=== PATIENT | male | born 1975 | race Caucasian/White ===

== ENCOUNTER 2016-10-25 16:35 | Emergency (ER) | payer OTHER ==
[~2016-10-25] VITALS: Ht 180.3 cm; Wt 75.0 kg
[~2016-10-25 16:35] MED LIST: HYDR-3498 PO; HYDR-3504 PO; HYDR-762 PO; ONDA4TAB14 PO; OXYC-209 PO; OXYC-284 PO; PERM120L5 TP; VIGA RIGHT EYE
[2016-10-25 16:43] VITALS: Ht 180.3 cm; Wt 75.0 kg
[2016-10-25] MEDS ORDERED: HYDROmorphONE 1 MG/ML SYG IM STA (17:52)
[2016-10-25] MEDS ORDERED: PROMETHAZINE 25 MG TAB PO ONE (18:00)
[2016-10-25 18:22] LABS: ADD SCAN DIFF NO
[2016-10-25 18:26] LABS: BASOPHILS % 0.4 % (0.0-2.0); EOSINOPHILS # 0.3 10^3/ul (0.0-0.5); EOSINOPHILS % 3.7 % (0.0-7.0); HEMATOCRIT 37.5 % (42.0-52.0); LYMPHOCYTES # 2.7 10^3/ul (0.8-2.9); LYMPHOCYTES % 38.6 % (15.0-51.0); MEAN CORPUSCULAR HEMOGLOBIN 28.9 pg (29.0-33.0); MEAN CORPUSCULAR VOLUME 90.4 fl (82.0-101.0); MEAN PLATELET VOLUME 9.6 fl (7.4-10.4); MONOCYTE # 0.5 10^3/ul (0.3-0.9); MONOCYTES % 7.3 % (0.0-11.0); NEUTROPHIL # 3.5 10^3/ul (1.6-7.5); NEUTROPHILS % 49.9 % (39.0-77.0); PLATELET COUNT 317 10^3/UL (140-415); RED BLOOD COUNT 4.15 10^6/ul (4.70-6.10); RED CELL DISTRIBUTION WIDTH 13.4 % (11.5-14.5); WHITE BLOOD COUNT 7.1 10^3/ul (4.8-10.8)
[2016-10-25 18:41] LABS: ALBUMIN 4.4 g/dl (3.3-4.9); POTASSIUM 3.5 mmol/L (3.5-5.1)
[2016-10-25 18:44] LABS: ALBUMIN/GLOBULIN RATIO 1.46; BILIRUBIN,INDIRECT 0.2 mg/dl (0-1.1); BILIRUBIN,TOTAL 0.2 mg/dl (0.2-1.3); CALCIUM 9.2 mg/dl (8.4-10.2); TOTAL PROTEIN 7.4 g/dl (6.1-8.1)
--- NOTE | 2016-10-25 18:59 | RADRPT ---
PROCEDURE: Scrotal ultrasound CLINICAL INDICATION: Bilateral testicular pain. TECHNIQUE: A scrotal ultrasound was performed utilizing contreras scale and Doppler imaging. COMPARISON: None. FINDINGS: The right testicle measures 3.6 x 2.3 x 2.7 cm. There is normal size and echogenicity and morphology of the right testicle with normal blood flow. The right epididymis measures 1.0 x 0.8 cm. Normal va scular flow is seen within the right epididymis. The left testicle measures 3.4 x 2.3 x 2.2 cm. There is normal size and echogenicity and morphology of the left testicle with normal blood flow. The left epididymis measures 0.9 x 0.5 cm. Normal vascu lar flow is seen within the left epididymis. There are small right and moderate left hydroceles. A left sided varicocele is also noted. IMPRESSION: 1. No evidence of testicular torsion or epididymo-orchitis. 2. Small right and moderate left hydroceles. 3. Left-sided varicocele. RPTAT: HTAR .Pan Chow MD, Date Time Electronically viewed and signed by .Pan Chow MD, on 10/25/2016 18:59 .R/
[2016-10-25 19:13] LABS: ADD UMIC YES; URINE BILIRUBIN (Dip) 1+ (NEGATIVE); URINE BLOOD (Dip) 2+ (NEGATIVE); URINE COLOR LT. YELLOW (YELLOW); URINE GLUCOSE (Dip) NEGATIVE (NEGATIVE); URINE KETONES (Dip) NEGATIVE (NEGATIVE); URINE LEUKOCYTE ESTERASE (Dip) NEGATIVE (NEGATIVE); URINE NITRITE (Dip) NEGATIVE (NEGATIVE); URINE TOTAL PROTEIN (Dip) NEGATIVE (NEGATIVE); URINE UROBILINOGEN (Dip) 0.2 E.U./dL (0.1-1.0)
--- NOTE | 2016-10-25 19:17 | ERD ---
ER Documentation Chief Complaint Date/Time DATE: 10/25/16 TIME: 19:15 Chief Complaint PAIN IN TESTICLES SINCE YESTERDAY HPI Patient is a 41-year-old male who is legally blind who presents to the ED with multiple complaints. Patient presents to the ED with bilateral testicular pain , abdominal pain, dysuria. He states that he developed the testicular pain "after he had sex and did not ejaculate." He states the abdominal pain is throughout his entire abdomen. He states that he had a bowel movement today. Denies constipation. Denies vomiting or diarrhea. Denies back pain. Denies chest pain, cough, shortness of breath or difficulty breathing. Denies headache or dizziness, neck pain or stiffness. Denies leg pain or swelling. Denies recent travel or recent surgeries. He also complains of a rash on his head and back. States that it is itchy. Denies recent travel. Denies using any other medicine. ROS All systems reviewed and are negative except as per history of present illness. Medications Home Meds Active Scripts Permethrin* (Elimite*) 5% Cr, 1 APPLIC TOP ONCE for 7 Days, TUB Prov:CRIS JAMIL PA-C 10/25/16 Ondansetron (Ondansetron Odt) 4 Mg Tab.rapdis, 4 MG PO Q8 Y for NAUSEA AND/OR VOMITING, #30 TAB Prov:BERRY SHELDON NP 04/11/16 Oxycodone HCl/Acetaminophen (Percocet 10-325 mg Tablet) 1 Each Tablet, 1 EACH PO Q6, #10 TAB Prov:BERRY SHELDON NP 04/11/16 Oxycodone HCl/Acetaminophen (Percocet 10-325 mg Tablet) 1 Each Tablet, 1 EACH PO TID, #14 TAB Prov:SHELIA PATRICIA MD 03/11/16 Oxycodone Hcl-Acetaminophen* (Percocet*) 10-325 Mg Tablet, 1 TAB PO Q4H Y for sev, #3 TAB Prov:BERRY SHELDON NP 11/18/15 Hydrocodone Bit-Acetaminophen* ([place]*) 5-325 Mg Tab, 1 TAB PO Q6 Y for PAIN, # 7 TAB Prov:TJ FERNANDEZ 09/25/15 Moxifloxacin Hcl* (Vigamox*) 0.5% - 3 Ml Opht, 1 DROP RIGHT EYE TID for 7 Days, EA Prov:TJ FERNANDEZ 09/25/15 Permethrin (Permethrin) 118 Ml Liquid, 118 ML TP BID for 7 Days, EA Prov:LETTY PIZANO. 08/10/15 Hydrocodone Bit-Acetaminophen* ([place]*) 10-325 Mg Tablet, 1 TAB PO Q6 Y for PAIN , #20 TAB Prov:LETTY PIZANO. 08/10/15 Reported Medications Hydrocodone Bit-Acetaminophen (Hydrocodone-APAP) 10-325MG Tablet, 1 TAB PO Q4 Y for PAIN, #20 08/10/15 Allergies Allergies: Coded Allergies: ketorolac tromethamine (Verified Allergy, Intermediate, hives, 02/23/15) prochlorperazine maleate (Verified Allergy, Intermediate, hives, 02/23/15) morphine (Verified Allergy, Unknown, 03/19/14) PMhx/Soc History of Surgery: Yes (B Corneal Surg) Anesthesia Reaction: No Hx Neurological Disorder: Yes (Migraine HAs,Chronic Pains) Hx Respiratory Disorders: No Hx Cardiac Disorders: No Hx Psychiatric Problems: No Hx Miscellaneous Medical Probl: Yes (B Conjunctivitis,Fall,Legally Blind, glaucoma, back pain.) Hx Alcohol Use: No Hx Substance Use: No Hx Tobacco Use: Yes (10 sticks/day) Smoking Status: Current every day smoker FmHx Family History: No coronary disease, No diabetes, No other Physical Exam Vitals Vital Signs Date Time Temp Pulse Resp B/P Pulse Ox O2 Delivery O2 Flow Rate FiO2 10/25/16 20:10 98.2 78 20 143/76 97 Room Air 10/25/16 16:43 98.2 94 20 155/80 97 Physical Exam GENERAL: Well-developed, well-nourished male. Appears in no acute distress. HEAD: Normocephalic, atraumatic. LUNG: Clear to auscultation bilaterally. No rhonchi, wheezing, rales or coarse breath sounds. HEART: Regular rate and rhythm. No murmurs, rubs or gallops. ABDOMEN: No scars, ecchymosis or rashes noted. Soft, and nondistended. Positive bowel sounds in all four quadrants. No rebound tenderness, no guarding. (-) McBurneys point tenderness. No CVA tenderness. Tender with no focal tenderness. : Bilaterally descended testicles. No redness or swelling. No rashes. BACK: No midline tenderness. Extremities: Equal pulses bilaterally. No peripheral clubbing, cyanosis or edema. No unilateral leg swelling. NEUROLOGIC: Alert and oriented. Moving all four extremities. 5/5 strength in all extremities. Normal speech. Steady gait. SKIN: Normal color. Warm and dry. Erythematous lesions on neck and back, not excoriated. No drainage or signs of infection.. Capillary refill < 2 seconds Result Diagram: 10/25/16 1800 10/25/16 1800 Results 24 hrs Laboratory Tests Test 10/25/16 18:00 10/25/16 18:30 White Blood Count 7.110^3/ul Red Blood Count 4.1510^6/ul Hemoglobin 12.0g/dl Hematocrit 37.5% Mean Corpuscular Volume 90.4fl Mean Corpuscular Hemoglobin 28.9pg Mean Corpuscular Hemoglobin Concent 32.0g/dl Red Cell Distribution Width 13.4% Platelet Count 49899^3/UL Mean Platelet Volume 9.6fl Neutrophils % 49.9% Lymphocytes % 38.6% Monocytes % 7.3% Eosinophils % 3.7% Basophils % 0.4% Nucleated Red Blood Cells % 0.0/100WBC Neutrophils # 3.510^3/ul Lymphocytes # 2.710^3/ul Monocytes # 0.510^3/ul Eosinophils # 0.310^3/ul Basophils # 0.010^3/ul Nucleated Red Blood Cells # 0.010^3/ul Sodium Level 143mmol/L Potassium Level 3.5mmol/L Chloride Level 104mmol/L Carbon Dioxide Level 24mmol/L Anion Gap 19 Blood Urea Nitrogen 15mg/dl Creatinine 1.00mg/dl Glucose Level 98mg/dl Calcium Level 9.2mg/dl Total Bilirubin 0.2mg/dl Direct Bilirubin 0.00mg/dl Indirect Bilirubin 0.2mg/dl Aspartate Amino Transf (AST/SGOT) 20IU/L Alanine Aminotransferase (ALT/SGPT) 20IU/L Alkaline Phosphatase 88IU/L Total Protein 7.4g/dl Albumin 4.4g/dl Globulin 3.00g/dl Albumin/Globulin Ratio 1.46 Lipase 64U/L Urine Color LT. YELLOW Urine Clarity CLEAR Urine pH 6.0 Urine Specific [place] 1.025 Urine Ketones NEGATIVE Urine Nitrite NEGATIVE Urine Bilirubin 1+ Urine Ictotest NEGATIVE Urine Urobilinogen 0.2 E.U./dL Urine Leukocyte Esterase NEGATIVE Urine Microscopic RBC 5-10/HPF Urine Microscopic WBC 5-10/HPF Urine Epithelial Cells FEW Urine Bacteria FEW Urine Hemoglobin 2+ Urine Glucose NEGATIVE% Urine Total Protein NEGATIVE Current Medications Medications (Trade) Dose Ordered Sig/Cheko Route PRN Reason Start Time Stop Time Status Last Admin Dose Admin Promethazine HCl (Phenergan) 25 mg ONCE ONCE PO 10/25/16 18:00 10/25/16 18:01 DC 10/25/16 18:30 Hydromorphone HCl (Dilaudid) 1 mg ONCE STAT IM 10/25/16 17:52 10/25/16 17:56 DC 10/25/16 18:20 Procedures/MDM ER COURSE: I kept the patient and/or family informed of laboratory and diagnostic imaging results throughout the emergency room course. EKG, MONITORS, & DIAGNOSTIC IMAGING: [place] [id number] Radiology Main Line: [phone] DIAGNOSTIC IMAGING REPORT Patient: MARKY BAILON : 1975 Age: 41 Sex: M MR #: [id number] DOS: 10/25/16 1752 Ordering MD: CRIS JAMIL PA-C Location: [facility] Room/Bed: PROCEDURE: Scrotal ultrasound CLINICAL INDICATION: Bilateral testicular pain. TECHNIQUE: A scrotal ultrasound was performed utilizing contreras scale and Doppler imaging. COMPARISON: None. FINDINGS: The right testicle measures 3.6 x 2.3 x 2.7 cm. There is normal size and echogenicity and morphology of the right testicle with normal blood flow. The right epididymis measures 1.0 x 0.8 cm. Normal vascular flow is seen within the right epididymis. The left testicle measures 3.4 x 2.3 x 2.2 cm. There is normal size and echogenicity and morphology of the left testicle with normal blood flow. The left epididymis measures 0.9 x 0.5 cm. Normal vascular flow is seen within the left epididymis. There are small right and moderate left hydroceles. A left sided varicocele is also noted. IMPRESSION: 1. No evidence of testicular torsion or epididymo-orchitis. 2. Small right and moderate left hydroceles. 3. Left-sided varicocele. RPTAT: HTAR .Pan Chow MD, Date Time Electronically viewed and signed by .Pan Chow MD, on 10/25/2016 18:59 .R/ CC: CRIS JAMIL PA-C [place] [id number] Radiology Main Line: [phone] DIAGNOSTIC IMAGING REPORT Patient: MARKY BAILON : 1975 Age: 41 Sex: M MR #: [id number] DOS: 10/25/16 1742 Ordering MD: CRIS JAMIL PA-C Location: [facility] Room/Bed: PROCEDURE: CT abdomen and pelvis without contrast. CLINICAL INDICATION: Abdominal pain. TECHNIQUE: CT scan of the abdomen and pelvis without contrast was performed on a multi-slice CT scanner . Sagittal and coronal reformatted images were obtained from the axial source images. DLP 407.3 mGycm. CTDIvol 7.2 mGy COMPARISON: None FINDINGS: The lung bases are clear. There is limited evaluation of the solid viscera from the lack of IV contrast. The kidneys are symmetric bilaterally with no evidence of renal or ureteral calculi. There is a fluid density rounded cyst at the upper pole left kidney. There is no hydronephrosis or perinephric stranding. There is normal density of the liver with no gross focal lesion or biliary ductal dilatation. The gallbladder is unremarkable without inflammation. The spleen is unremarkable without mass. The adrenal glands are within normal limits without mass. The pancreas is unremarkable without focal lesion or surrounding inflammatory changes. There is no bowel obstruction or focal bowel inflammation. The appendix is unremarkable. There is a moderately fecal filled colon. There is no free air or free fluid. There are no enlarged lymph nodes. There is aortic atherosclerosis without aneurysmal dilatation. There is no acute osseous abnormality. The prostate is grossly unremarkable. IMPRESSION: No evidence of renal or ureteral calculi or hydronephrosis. No evidence of bowel obstruction or inflammation. There is a fecal filled colon. Atherosclerotic disease is present. RPTAT: AA .Chano Chopra MD, Date Time Electronically viewed and signed by .Chano Chopra MD, MD on 10/25/2016 19:18 .J/ CC: CRIS JAMIL PA-C MEDICATIONS: 1 Dilaudid, Phenergan p.o. Tolerated well and stated improvement in symptoms. No adverse reaction. LAB INTERPRETATION: CBC showed no evidence of systemic infection or severe anemia. CMP showed no evidence of electrolyte abnormalities, severe acidosis, alkalosis, renal failure , or liver disease. Lipase showed no evidence of acute pancreatitis. UA showed no evidence of leukocytes, nitrites or hematuria. MEDICAL DECISION MAKING: This is a 41-year-old male who presents with multiple complaints. Vital signs were reviewed. Patient is afebrile. Patient is not hypoxic. Patient is not toxic or ill-appearing. I consulted with Dr. Romero regarding this patient. Ultrasound and CAT scan is read by radiologist is unremarkable. I did explain to patient all the laboratory studies and imaging studies. Patient also has abdominal pain of unknown etiology. Patient also has a rash of unknown etiology , likely bug bite. I will be treating prophylactically with permethrin outpatient only. Patient was requesting more pain medication however I did explain to patient that after the 1 dose of Dilaudid no more narcotic pain medications will be given to patient. I do feel that patient has drug-seeking behavior as he has been to [facility] multiple times. Patient refused any other medication and stated that he would take his OxyContin that he has at home for his pain. Patient also had multiple questions throughout the visit. All questions were answered. Low suspicion for pyelonephritis, UTI, nephrolithiasis, appendicitis, testicular torsion, incarcerated or strangulated hernia. Low suspicion for ACS, AAA, perforated ulcer, bowel obstruction, cholecystitis, choledocholithiasis, cholangitis, pancreatitis, hepatic abscess, appendicitis, diverticulitis, gastroenteritis, hepatitis, peptic ulcer disease, HELLP syndrome. Low suspicion for necrotizing fasciitis, SJS, toxic epidermal necrolysis, Kawasaki, erythema multiforme, gangrene, scarlet fever, meningococcemia, sepsis, anaphylaxis, sepsis, deep space infection, or foreign body. DISCHARGE: At this time, patient is stable for discharge and outpatient management with no new complaints during the ER course. Patient was sent home with permethrin for itching and prophylactic treatment of pediculosis.. Patient will be discharged home with instructions to recheck for new or worsening symptoms such as fever, nausea, weakness, LOC and to follow up with primary care in the next 1-2 days. Patient was advised to return to the ER for any new or worsening symptoms. Plan was discussed and patient and/or family understands and agrees. Home instructions were given. Departure Diagnosis: Primary Impression: Abdominal pain Abdominal location: unspecified location Qualified Code: R10.9 - Abdominal pain, unspecified location Additional Impressions: Rash Drug-seeking behavior Condition: Stable CRIS JAMIL PA-C Oct 25, 2016 19:17 CRIS JAMIL PA-C Oct 25, 2016 19:17
--- NOTE | 2016-10-25 19:19 | RADRPT ---
PROCEDURE: CT abdomen and pelvis without contrast. CLINICAL INDICATION: Abdominal pain. TECHNIQUE: CT scan of the abdomen and pelvis without contrast was performed on a multi-slice CT [facility] . Sagittal and coronal reformatted images were obtained from the axial source images. DLP 407.3 mGycm. CTDIvol 7.2 mGy COMPARISON: None FINDINGS: The lung bases are clear. There is limited evaluation of the solid viscera from the lack of IV con trast. The kidneys are symmetric bilaterally with no evidence of renal or ureteral calculi. There is a flui d density rounded cyst at the upper pole left kidney. There is no hydronephrosis or perinephric stra nding. There is normal density of the liver with no gross focal lesion or biliary ductal dilatation. The gallbladder is unremarkable without inflammation. The spleen is unremarkable without mass. The adrenal glands are within normal limits without mass. The pancreas is unremarkable without focal lesion or surrounding inflammatory changes. There is no bowel obstruction or focal bowel inflammation. The appendix is unremarkable. There is a moderately fecal filled colon. There is no free air or free fluid. There are no enlarged lymph nod es. There is aortic atherosclerosis without aneurysmal dilatation. There is no acute osseous abnormal ity. The prostate is grossly unremarkable. IMPRESSION: No evidence of renal or ureteral calculi or hydronephrosis. No evidence of bowel obstruction or inflammation. There is a fecal filled colon. Atherosclerotic disease is present. RPTAT: AA .Chano Chopra MD, MD Date Time Electronically viewed and signed by .Chano Chopra MD, MD on 10/25/2016 19:18 .Jaret/
[2016-10-25] MEDS ORDERED: ELIM TOP (19:24)
[2016-10-25 19:27] LABS: BACTERIA,URINE FEW
[2016-10-25 20:10] VITALS: BP 143/76; PULSE 78; RESP 20; TEMP 98.2
[2016-10-25 23:01] LABS: ICTOTEST NEGATIVE (NEGATIVE)
== END 2016-10-25 20:10 | disposition home or self-care (01) ==
LOC: FTE 16:35
DX: R10.9 Unspecified abdominal pain (principal); R21 Rash and other nonspecific skin eruption; F17.210 Nicotine dependence, cigarettes, uncomplicated; Z72.89 Other problems related to lifestyle
CPT/HCPCS: 74176; 76870; 80053; 81001; 81003; 83690; 85025; 87086; 96372; J1170; Z7502; Z7610

== ENCOUNTER 2016-11-26 23:31 | Emergency (ER) | payer OTHER ==
[~2016-11-26] VITALS: Ht 170.2 cm; Wt 68.5 kg
[~2016-11-26 23:31] MED LIST changes: +ELIM TOP
[2016-11-26 23:36] VITALS: Ht 170.2 cm; Wt 68.5 kg
[2016-11-27] MEDS ORDERED: HYDROmorphONE 1 MG/ML SYG IM STA (00:23)
[2016-11-27] MEDS ORDERED: PROMETHAZINE 25 MG TAB PO ONE (00:30)
--- NOTE | 2016-11-27 01:04 | ERD ---
ER Documentation Chief Complaint Date/Time DATE: 11/27/16 TIME: 00:59 Chief Complaint headache, neck/eye pain x 1 day HPI Patient is a 41-year-old male who presents to the ED with headache, eye pain and neck pain 3 days. He states that he has had this headache in the past and this is exactly the same headache as he has experienced in the past. He states that the cold weather has triggered his pain. Patient denies abdominal pain, nausea, vomiting or diarrhea. Denies dizziness. Denies fever or chills. Denies chest pain, cough, shortness of breath or difficulty breathing. He states that he has a [place] prescription and takes after his pain however he is here for pain medication. He states that he would "Phenergan p.o. and Dilaudid 1 mg" states that he has received this in the past and it helped with his pain. ROS All systems reviewed and are negative except as per history of present illness. Medications Home Meds Active Scripts Permethrin* (Elimite*) 5% Cr, 1 APPLIC TOP ONCE for 7 Days, TUB Prov:CRIS JAMIL PA-C 10/25/16 Ondansetron (Ondansetron Odt) 4 Mg Tab.rapdis, 4 MG PO Q8 Y for NAUSEA AND/OR VOMITING, #30 TAB Prov:BERRY SHELDON NP 04/11/16 Oxycodone HCl/Acetaminophen (Percocet 10-325 mg Tablet) 1 Each Tablet, 1 EACH PO Q6, #10 TAB Prov:BERRY SHELDON NP 04/11/16 Oxycodone HCl/Acetaminophen (Percocet 10-325 mg Tablet) 1 Each Tablet, 1 EACH PO TID, #14 TAB Prov:SHELIA PATRICIA MD 03/11/16 Oxycodone Hcl-Acetaminophen* (Percocet*) 10-325 Mg Tablet, 1 TAB PO Q4H Y for sev, #3 TAB Prov:BERRY SHELDON NP 11/18/15 Hydrocodone Bit-Acetaminophen* ([place]*) 5-325 Mg Tab, 1 TAB PO Q6 Y for PAIN, # 7 TAB Prov:TJ FERNANDEZ 09/25/15 Moxifloxacin Hcl* (Vigamox*) 0.5% - 3 Ml Opht, 1 DROP RIGHT EYE TID for 7 Days, EA Prov:REBECCATJ Twila 09/25/15 Permethrin (Permethrin) 118 Ml Liquid, 118 ML TP BID for 7 Days, EA Prov:LETTY PIZANO. 08/10/15 Hydrocodone Bit-Acetaminophen* ([place]*) 10-325 Mg Tablet, 1 TAB PO Q6 Y for PAIN , #20 TAB Prov:LETTY PIZANO S. 08/10/15 Reported Medications Hydrocodone Bit-Acetaminophen (Hydrocodone-APAP) 10-325MG Tablet, 1 TAB PO Q4 Y for PAIN, #20 08/10/15 Allergies Allergies: Coded Allergies: ketorolac tromethamine (Verified Allergy, Intermediate, hives, 02/23/15) prochlorperazine maleate (Verified Allergy, Intermediate, hives, 02/23/15) morphine (Verified Allergy, Unknown, 03/19/14) PMhx/Soc History of Surgery: Yes (B Corneal Surg) Anesthesia Reaction: No Hx Neurological Disorder: Yes (Migraine HAs,Chronic Pains) Hx Respiratory Disorders: No Hx Cardiac Disorders: No Hx Psychiatric Problems: No Hx Miscellaneous Medical Probl: Yes (B Conjunctivitis,Fall,Legally Blind, glaucoma, back pain.) Hx Alcohol Use: No Hx Substance Use: No Hx Tobacco Use: Yes (10 sticks/day) Smoking Status: Current every day smoker FmHx Family History: No coronary disease, No diabetes, No other Physical Exam Vitals Vital Signs Date Time Temp Pulse Resp B/P Pulse Ox O2 Delivery O2 Flow Rate FiO2 11/26/16 23:36 98.2 74 20 170/92 98 Physical Exam GENERAL: Well-developed, well-nourished male. Appears in no acute distress. HEAD: Normocephalic, atraumatic. EYES: Unable to assess pupils due to patient's blindness and unable to open his eyes. ENT: Moist mucous membranes. No uvula deviation. No kissing tonsils. No exudates. NECK: Supple. No lymphadenopathy or thyromegaly. No meningismus. negative kernig. negative brudinski. LUNG: Clear to auscultation bilaterally. No rhonchi, wheezing, rales or coarse breath sounds. HEART: Regular rate and rhythm. No murmurs, rubs or gallops. ABDOMEN: No scars, ecchymosis or rashes noted. Soft, nontender, and nondistended. Positive bowel sounds in all four quadrants. No rebound tenderness , no guarding. (-) McBurneys point tenderness. No CVA tenderness. BACK: No midline tenderness. Extremities: Equal pulses bilaterally. No peripheral clubbing, cyanosis or edema. No unilateral leg swelling. NEUROLOGIC: Alert and oriented. Moving all four extremities. 5/5 strength in all extremities. Normal speech. Steady gait. Cranial nerves II through XII intact. SKIN: Normal color. Warm and dry. No rashes or lesions. Capillary refill < 2 seconds Results 24 hrs Current Medications Medications (Trade) Dose Ordered Sig/Cheko Route PRN Reason Start Time Stop Time Status Last Admin Dose Admin Promethazine HCl (Phenergan) 25 mg ONCE ONCE PO 11/27/16 00:30 11/27/16 00:31 DC 11/27/16 00:35 Hydromorphone HCl (Dilaudid) 1 mg ONCE STAT IM 11/27/16 00:23 11/27/16 00:24 DC 11/27/16 00:47 Procedures/MDM ER COURSE: I kept the patient and/or family informed of laboratory and diagnostic imaging results throughout the emergency room course. MEDICAL DECISION MAKING: This is a 41-year-old male who presents with headache 3 days. Vital signs were reviewed. Patient is afebrile. Patient is not hypoxic. Patient is not toxic or ill-appearing. Patient has headache of unknown etiology. Patient's headache is chronic and this is exactly what he has experienced in the past. Patient refused CT scan and I do not think a CT scan is necessary today. Risk versus benefits were discussed with patient. Patient is refusing any blood work or imaging studies and would only like his pain medication. I do believe that patient has drug-seeking behavior. I consulted with Dr. Pizano regarding this patient who stated that patient can receive the 25 mg Phenergan p.o. and 1 mg Dilaudid IM here in the ED and discharged with no pain medication. I did discuss this with the patient and stated I will not be writing any narcotic pain medicines for patient. Low suspicion for intracranial hemorrhage, meningitis, intracranial mass, concussion, temporal arteritis, stroke, elevated intracranial pressure, seizure. DISCHARGE: At this time, patient is stable for discharge and outpatient management with no new complaints during the ER course. Patient was sent home with instructions to follow-up with his primary care and neurologist for better management of his headaches.. Patient will be discharged home with instructions to recheck for new or worsening symptoms such as fever, nausea, weakness, LOC and to follow up with primary care in the next 1-2 days. Patient was advised to return to the ER for any new or worsening symptoms. Plan was discussed and patient and/or family understands and agrees. Home instructions were given. Departure Diagnosis: Primary Impression: Headache Headache type: unspecified Headache chronicity pattern: chronic headache Intractability: not intractable Qualified Code: R51 - Chronic nonintractable headache, unspecified headache type Condition: Stable Patient Instructions: Self-Care for Headaches Referrals: STCAIA THOMAS (PCP) Additional Instructions: Call your primary care doctor TOMORROW for an appointment during the next 1-2 days.See the doctor sooner or return here if your condition worsens before your appointment time. CRIS JAMIL PA-C November 27, 2016 01:04
[2016-11-27 01:37] VITALS: BP 170/98; PULSE 70; RESP 16; TEMP 98.7
== END 2016-11-27 01:38 | disposition home or self-care (01) ==
LOC: FTE 23:31
DX: R51 Headache (principal); F17.210 Nicotine dependence, cigarettes, uncomplicated
CPT/HCPCS: 96372; J1170; Z7502; Z7610

== ENCOUNTER 2017-01-29 06:46 | Emergency (ER) | payer OTHER ==
[~2017-01-29] VITALS: Ht 170.2 cm; Wt 65.5 kg
[2017-01-29 06:53] VITALS: Ht 170.2 cm; Wt 65.5 kg
[2017-01-29] MEDS ORDERED: ONDANSETRON (ODT) 4 MG TAB ODT STA (07:10)
[2017-01-29] MEDS ORDERED: HYDR-902 PO (07:14)
--- NOTE | 2017-01-29 07:24 | ERD ---
ER Documentation Chief Complaint Date/Time DATE: 01/29/17 TIME: 07:18 Chief Complaint Pt with MORAN, B eye pain, neck and back pain since yesterday. 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 Patient states that when the weather and temperature changes he often experiences body aches, and exacerbation of his chronic neck and back pain. Patient also reports a headache which he describes as a constant circumferential, 5 out of 10 throbbing headache which does not radiate. Patient denies fever, chills, nausea, vomiting, diarrhea, abdominal pain, difficulty breathing, cough, or sore throat. He is requesting a shot of Dilaudid as well as Phenergan while in the emergency department to alleviate his symptoms. He states he has not attempted to treat his symptoms with medication thus far otherwise. ROS All systems reviewed and are negative except as per history of present illness. Medications Home Meds Active Scripts Hydrocodone/Acetaminophen ([place] 10-325 Tablet) 1 Each Tablet, 1 TAB PO Q6H Y for PAIN, #7 TAB Prov:YANELIS SNIDER PA-C 01/29/17 Permethrin* (Elimite*) 5% Cr, 1 APPLIC TOP ONCE for 7 Days, TUB Prov:CRIS JAMIL PA-C 10/25/16 Ondansetron (Ondansetron Odt) 4 Mg Tab.rapdis, 4 MG PO Q8 Y for NAUSEA AND/OR VOMITING, #30 TAB Prov:BERRY SHELDON NP 04/11/16 Oxycodone HCl/Acetaminophen (Percocet 10-325 mg Tablet) 1 Each Tablet, 1 EACH PO Q6, #10 TAB Prov:BERRY SHELDON NP 04/11/16 Oxycodone HCl/Acetaminophen (Percocet 10-325 mg Tablet) 1 Each Tablet, 1 EACH PO TID, #14 TAB Prov:SHELIA PATRICIA MD 03/11/16 Oxycodone Hcl-Acetaminophen* (Percocet*) 10-325 Mg Tablet, 1 TAB PO Q4H Y for sev, #3 TAB Prov:BERRY SHELDON NP 11/18/15 Hydrocodone Bit-Acetaminophen* ([place]*) 5-325 Mg Tab, 1 TAB PO Q6 Y for PAIN, # 7 TAB Prov:TJ FERNANDEZ 09/25/15 Moxifloxacin Hcl* (Vigamox*) 0.5% - 3 Ml Opht, 1 DROP RIGHT EYE TID for 7 Days, EA Prov:TJ FERNANDEZ 09/25/15 Permethrin (Permethrin) 118 Ml Liquid, 118 ML TP BID for 7 Days, EA Prov:LETTY PIZANO [place]. 08/10/15 Hydrocodone Bit-Acetaminophen* ([place]*) 10-325 Mg Tablet, 1 TAB PO Q6 Y for PAIN , #20 TAB Prov:LETTY PIZANO S. 08/10/15 Reported Medications Hydrocodone Bit-Acetaminophen (Hydrocodone-APAP) 10-325MG Tablet, 1 TAB PO Q4 Y for PAIN, #20 08/10/15 Allergies Allergies: Coded Allergies: ketorolac tromethamine (Verified Allergy, Intermediate, hives, 02/23/15) prochlorperazine maleate (Verified Allergy, Intermediate, hives, 02/23/15) morphine (Verified Allergy, Unknown, 03/19/14) PMhx/Soc History of Surgery: Yes (B Corneal Surg) Anesthesia Reaction: No Hx Neurological Disorder: Yes (Migraine HAs,Chronic Pains) Hx Respiratory Disorders: No Hx Cardiac Disorders: No Hx Psychiatric Problems: No Hx Miscellaneous Medical Probl: Yes (B Conjunctivitis,Fall,Legally Blind, glaucoma, back pain.) Hx Alcohol Use: No Hx Substance Use: No Hx Tobacco Use: Yes (10 sticks/day) Physical Exam Vitals Vital Signs Date Time Temp Pulse Resp B/P Pulse Ox O2 Delivery O2 Flow Rate FiO2 01/29/17 06:53 97.8 85 16 140/99 100 Physical Exam Const: Well-developed, well-nourished, in no acute distress Head: Atraumatic Eyes: Enucleation of bilateral eyes. No orbital or periorbital edema or erythema. No discharge. ENT: Normal External Ears, Nose and Mouth. Posterior pharynx without erythema or tonsillar swelling Neck: Full range of motion..~ No meningismus. Resp: Clear to auscultation bilaterally, no wheezes, rhonchi, rales Cardio: Regular rate and rhythm, no murmurs Abd: Soft, non tender, non distended. Normal bowel sounds Skin: No petechiae or rashes Back: No midline or flank tenderness Ext: No cyanosis, or edema Neur: Awake and alert Psych: Normal Mood and Affect Results 24 hrs Current Medications Medications (Trade) Dose Ordered Sig/Cheko Route PRN Reason Start Time Stop Time Status Last Admin Dose Admin Acetaminophen/ Hydrocodone Bitart ([place] (5/325)) 1 tab ONCE ONCE PO 01/29/17 07:30 01/29/17 07:31 01/29/17 07:23 Ondansetron HCl (Zofran Odt) 4 mg ONCE STAT ODT 01/29/17 07:10 01/29/17 07:12 DC 01/29/17 07:23 Procedures/MDM This is a 41-year-old male who presents emergency department complaining of multiple symptoms including body aches, chronic, and acute on chronic neck and back pain as well as headache. Patient without complaints of fever, chills, nausea, vomiting, diarrhea. Vital signs reviewed. Patient afebrile, non- tachycardic, normotensive and non-hypoxic upon arrival. Patient well-appearing , well-nourished, nontoxic and in no acute distress upon arrival. Patient demanded IM Dilaudid and Phenergan for his symptoms. I explained to the patient that his medications are not indicated for his symptoms and that I would be happy to give him an alternative. Patient refused all alternatives and noted that he is allergic to other narcotics. He did request a prescription for 103/25 [place]. I instructed the patient to follow-up with a paint trimmer pipe bowls for better control of his chronic pain. History and physical consistent with body aches, headache, and acute on chronic back pain likely the result of an acute viral syndrome. The patient does not exhibit any clinical signs or symptoms concerning for serious bacterial infection or systemic illness. Based on history and clinical exam findings the patient does not appear to have evidence of pneumonia, strep pharyngitis, urinary tract infection, bacteremia, sepsis, or meningitis. The patient's headache is unlikely related to serious etiology. The patient does not exhibit any clinical signs or symptoms, and has no risk factors to suggest headache etiology such as subarachnoid hemorrhage, acute vertebral or carotid dissection, intracranial mass, epidural, subdural hematoma, dural venous sinus thrombosis, giant cell arteritis, or pseudotumor cerebri. For these reasons I do not believe it is necessary to obtain laboratory testing or diagnostic imaging. I believe it would be appropriate for symptom control, and close outpatient primary care follow-up. Based on patient's history of present illness and physical examination the decision was made to discharge. The patient was re-evaluated after ED treatment and stabilizing measures, and symptoms have improved. There is no evidence of life threatening injuries or illnesses at this time. On re-examination, patient resting in no distress, stable vital signs, reports feeling better and safe for discharge with outpatient follow up with PMD in 1-2 days. Patient given return precautions. Departure Diagnosis: Primary Impression: Headache Headache type: unspecified Headache chronicity pattern: acute headache Intractability: not intractable Qualified Code: R51 - Acute nonintractable headache, unspecified headache type Additional Impressions: Back pain Back pain location: low back pain Chronicity: chronic Back pain laterality : midline Sciatica presence: unspecified whether sciatica present Qualified Code: M54.5 - Chronic midline low back pain, with sciatica presence unspecified Body aches Neck pain Chronic pain Chronic pain type: chronic pain syndrome Qualified Code: G89.4 - Chronic pain syndrome Condition: Good Patient Instructions: Viral Syndrome (Adult) Referrals: STACIA THOMAS (PCP) Additional Instructions: Call your primary care doctor TOMORROW for an appointment during the next 1-2 days.See the doctor sooner or return here if your condition worsens before your appointment time. YANELIS SNIDER PA-C Jan 29, 2017 07:24
[2017-01-29] MEDS ORDERED: HYDROCODONE/APAP (5/325) TAB PO ONE (07:30)
== END 2017-01-29 07:28 | disposition home or self-care (01) ==
LOC: FTE 06:46
DX: R51 Headache (principal); M54.5 Low back pain; M54.2 Cervicalgia; G89.4 Chronic pain syndrome; F17.210 Nicotine dependence, cigarettes, uncomplicated
CPT/HCPCS: Z7502; Z7610; 99283

== ENCOUNTER 2017-02-04 09:51 | Emergency (ER) | payer OTHER ==
[~2017-02-04] VITALS: Ht 170.2 cm; Wt 68.2 kg
[~2017-02-04 09:51] MED LIST changes: +HYDR-902 PO
[2017-02-04 09:55] VITALS: Ht 170.2 cm; Wt 68.2 kg
[2017-02-04] MEDS ORDERED: HYDROmorphONE 1 MG/ML SYG IM STA (10:54)
--- NOTE | 2017-02-04 10:58 | ERD ---
ER Documentation Chief Complaint Date/Time DATE: 02/04/17 TIME: 10:56 Chief Complaint BROUGHT IN VIA EMS FROM EYE PAIN, NECK PAIN, AND ANXIETY HPI This 41-year-old male complains of acute on chronic eye pain and headache. He has a history of glaucoma and chronic blindness. Patient arrived by EMS. Patient states he is taking his home pain medications and is getting no relief. He denies any fevers, chest pain, shortness breath, new symptoms otherwise and is acute on chronic headache which he states is related to episodes of cold air on his left eye. ROS All systems reviewed and are negative except as per history of present illness. Medications Home Meds Active Scripts Hydrocodone/Acetaminophen ([place] 10-325 Tablet) 1 Each Tablet, 1 TAB PO Q6H Y for PAIN, #7 TAB Prov:YANELIS SNIDER PA-C 01/29/17 Permethrin* (Elimite*) 5% Cr, 1 APPLIC TOP ONCE for 7 Days, TUB Prov:CRIS JAMIL PA-C 10/25/16 Ondansetron (Ondansetron Odt) 4 Mg Tab.rapdis, 4 MG PO Q8 Y for NAUSEA AND/OR VOMITING, #30 TAB Prov:BERRY SHELDON NP 04/11/16 Oxycodone HCl/Acetaminophen (Percocet 10-325 mg Tablet) 1 Each Tablet, 1 EACH PO Q6, #10 TAB Prov:BERRY SHELDON NP 04/11/16 Oxycodone HCl/Acetaminophen (Percocet 10-325 mg Tablet) 1 Each Tablet, 1 EACH PO TID, #14 TAB Prov:SHELIA PATRICIA MD 03/11/16 Oxycodone Hcl-Acetaminophen* (Percocet*) 10-325 Mg Tablet, 1 TAB PO Q4H Y for sev, #3 TAB Prov:BERRY SHELDON NP 11/18/15 Hydrocodone Bit-Acetaminophen* ([place]*) 5-325 Mg Tab, 1 TAB PO Q6 Y for PAIN, # 7 TAB Prov:TJ FERNANDEZ 09/25/15 Moxifloxacin Hcl* (Vigamox*) 0.5% - 3 Ml Opht, 1 DROP RIGHT EYE TID for 7 Days, EA Prov:TJ FERNANDEZ 09/25/15 Permethrin (Permethrin) 118 Ml Liquid, 118 ML TP BID for 7 Days, EA Prov:LETTY PIZANO. 08/10/15 Hydrocodone Bit-Acetaminophen* ([place]*) 10-325 Mg Tablet, 1 TAB PO Q6 Y for PAIN , #20 TAB Prov:LETTY PIZANO. 08/10/15 Reported Medications Hydrocodone Bit-Acetaminophen (Hydrocodone-APAP) 10-325MG Tablet, 1 TAB PO Q4 Y for PAIN, #20 08/10/15 Allergies Allergies: Coded Allergies: ketorolac tromethamine (Verified Allergy, Intermediate, hives, 02/23/15) prochlorperazine maleate (Verified Allergy, Intermediate, hives, 02/23/15) morphine (Verified Allergy, Unknown, 03/19/14) PMhx/Soc History of Surgery: Yes (B Corneal Surg) Anesthesia Reaction: No Hx Neurological Disorder: Yes (Migraine HAs,Chronic Pains) Hx Respiratory Disorders: No Hx Cardiac Disorders: No Hx Psychiatric Problems: No Hx Miscellaneous Medical Probl: Yes (B Conjunctivitis,Fall,Legally Blind, glaucoma, back pain.) Hx Alcohol Use: No Hx Substance Use: No Hx Tobacco Use: Yes (10 sticks/day) Physical Exam Vitals Vital Signs Date Time Temp Pulse Resp B/P Pulse Ox O2 Delivery O2 Flow Rate FiO2 02/04/17 09:55 98.5 76 18 138/95 98 Physical Exam Const: [] [place], [id number]. Head: Atraumatic Eyes: Bilateral sunken globes with scar tissue. There is no periorbital erythema or purulent discharge. ENT: Normal External Ears, Nose and Mouth. Neck: Full range of motion..~ No meningismus. Resp: Clear to auscultation bilaterally Cardio: Regular rate and rhythm, no murmurs Abd: Soft, non tender, non distended. Normal bowel sounds Skin: No petechiae or rashes Back: No midline or flank tenderness Ext: No cyanosis, or edema Neur: Awake and alert Psych: Normal Mood and Affect Results 24 hrs Current Medications Medications (Trade) Dose Ordered Sig/Cheko Route PRN Reason Start Time Stop Time Status Last Admin Dose Admin Hydromorphone HCl (Dilaudid) 1 mg ONCE STAT IM 02/04/17 10:54 02/04/17 10:55 DC Promethazine HCl (Phenergan) 25 mg ONCE ONCE PO 02/04/17 11:00 02/04/17 11:01 Procedures/MDM Patient was given Dilaudid 1 mg IM and Phenergan 25 mg by mouth. Patient was advised to avoid using emergency room for recurrent pain issues. Patient was advised that he will likely be declined near future parenteral treatment for similar complaints. Patient expresses verbal understanding. Patient shows no signs or symptoms of additional emergent causes of presenting complaints of chest pain or bleeding, neurologic deficit, bacterial infection. Departure Diagnosis: Primary Impression: Eye pain Laterality: left Qualified Code: H57.12 - Eye pain, left Additional Impression: Migraine Migraine type: unspecified Status migrainosus presence: without status migrainosus Intractability: not intractable Qualified Code: G43.909 - Migraine without status migrainosus, not intractable, unspecified migraine type Patient Instructions: Headache, Unspecified Additional Instructions: Follow-up with primary doctor as directed. Avoid use of emergency room for chronic pain SHELIA PATRICIA MD Feb 04, 2017 10:58
[2017-02-04] MEDS ORDERED: PROMETHAZINE 25 MG TAB PO ONE (11:00)
== END 2017-02-04 12:04 | disposition home or self-care (01) ==
LOC: FTE 09:51
DX: H57.12 Ocular pain, left eye (principal); G43.909 Migraine, unspecified, not intractable, without status migrainosus; F17.210 Nicotine dependence, cigarettes, uncomplicated
CPT/HCPCS: 96372; J1170; Z7502; Z7610

== ENCOUNTER 2017-02-09 12:24 | Emergency (ER) | payer OTHER ==
[~2017-02-09] VITALS: Wt 89.0 kg
--- NOTE | 2017-02-09 13:45 | ERD ---
ER Documentation Chief Complaint Date/Time DATE: 02/09/17 TIME: 13:44 Chief Complaint ANXIETY X 1 DAY HPI This 41-year-old male presents with history of anxiety and chronic headaches. Patient is well-known to the ER is a history of blindness due to glaucoma and chronic headaches. Patient has a regular request for parenteral narcotics in the days of pain. Patient states that his doctor no longer takes his insurance. Patient complains of acute anxiety due to running out of his Valium. ROS All systems reviewed and are negative except as per history of present illness. Medications Home Meds Active Scripts Hydrocodone/Acetaminophen ([place] 10-325 Tablet) 1 Each Tablet, 1 TAB PO Q6H Y for PAIN, #7 TAB Prov:YANELIS SNIDER PA-C 01/29/17 Permethrin* (Elimite*) 5% Cr, 1 APPLIC TOP ONCE for 7 Days, TUB Prov:CRIS JAMIL PA-C 10/25/16 Ondansetron (Ondansetron Odt) 4 Mg Tab.rapdis, 4 MG PO Q8 Y for NAUSEA AND/OR VOMITING, #30 TAB Prov:BERRY SHELDON NP 04/11/16 Oxycodone HCl/Acetaminophen (Percocet 10-325 mg Tablet) 1 Each Tablet, 1 EACH PO Q6, #10 TAB Prov:BERRY SHELDON NP 04/11/16 Oxycodone HCl/Acetaminophen (Percocet 10-325 mg Tablet) 1 Each Tablet, 1 EACH PO TID, #14 TAB Prov:SHELIA PATRICIA MD 03/11/16 Oxycodone Hcl-Acetaminophen* (Percocet*) 10-325 Mg Tablet, 1 TAB PO Q4H Y for sev, #3 TAB Prov:BERRY SHELDON NP 11/18/15 Hydrocodone Bit-Acetaminophen* ([place]*) 5-325 Mg Tab, 1 TAB PO Q6 Y for PAIN, # 7 TAB Prov:TJ FERNANDEZ 09/25/15 Moxifloxacin Hcl* (Vigamox*) 0.5% - 3 Ml Opht, 1 DROP RIGHT EYE TID for 7 Days, EA Prov:TJ FERNANDEZ 09/25/15 Permethrin (Permethrin) 118 Ml Liquid, 118 ML TP BID for 7 Days, EA Prov:LETTY PIZANO. 08/10/15 Hydrocodone Bit-Acetaminophen* ([place]*) 10-325 Mg Tablet, 1 TAB PO Q6 Y for PAIN , #20 TAB Prov:LETTY PIZANO. 08/10/15 Reported Medications Hydrocodone Bit-Acetaminophen (Hydrocodone-APAP) 10-325MG Tablet, 1 TAB PO Q4 Y for PAIN, #20 08/10/15 Allergies Allergies: Coded Allergies: ketorolac tromethamine (Verified Allergy, Intermediate, hives, 02/23/15) prochlorperazine maleate (Verified Allergy, Intermediate, hives, 02/23/15) morphine (Verified Allergy, Unknown, 03/19/14) PMhx/Soc History of Surgery: Yes (B Corneal Surg) Anesthesia Reaction: No Hx Neurological Disorder: Yes (Migraine HAs,Chronic Pains) Hx Respiratory Disorders: No Hx Cardiac Disorders: No Hx Psychiatric Problems: No Hx Miscellaneous Medical Probl: Yes (B Conjunctivitis,Fall,Legally Blind, glaucoma, back pain.) Hx Alcohol Use: No Hx Substance Use: No Hx Tobacco Use: Yes (10 sticks/day) Smoking Status: Current every day smoker Physical Exam Vitals Vital Signs Date Time Temp Pulse Resp B/P Pulse Ox O2 Delivery O2 Flow Rate FiO2 02/09/17 12:32 98.0 78 18 132/78 99 Physical Exam Const: [] Alert, no apparent distress lying prone in a gurney. Head: Atraumatic Eyes: Normal Conjunctiva ENT: Normal External Ears, Nose and Mouth. Neck: Full range of motion..~ No meningismus. Resp: Clear to auscultation bilaterally Cardio: Regular rate and rhythm, no murmurs Abd: Soft, non tender, non distended. Normal bowel sounds Skin: No petechiae or rashes Back: No midline or flank tenderness Ext: No cyanosis, or edema Neur: Awake and alert Psych: Normal Mood and Affect Results 24 hrs Current Medications Medications (Trade) Dose Ordered Sig/Cheko Route PRN Reason Start Time Stop Time Status Last Admin Dose Admin Diazepam (Valium) 10 mg ONCE ONCE PO 02/09/17 14:00 02/09/17 14:01 Procedures/MDM Patient presents with complaints of acute anxiety likely secondary to running out of bed and it stays appears. Patient will be given Valium 10 mg of mouth to prevent seizures. Patient was counseled as he has been on previous visits regarding avoidance of use of emergency room for refills of controlled substances or treatment for chronic pain. Patient was discharged home without a prescription and instruction to follow-up with primary care doctor. Patient shows no signs or symptoms of emergent condition requiring further evaluation and treatment. The patient was stable with no new complaints during the ER course. Clinically, there is no current evidence to suggest meningitis, sepsis, acute abdomen, pneumonia, acute coronary syndrome, pulmonary embolism, or any other emergent condition appearing to require further evaluation or hospitalization. The patient should certainly return for any new or worsening symptoms per the aftercare instructions. They should otherwise follow-up with her primary care doctor for reevaluation this week. Departure Diagnosis: Primary Impression: Drug-seeking behavior Additional Impression: Anxiety attack Condition: Stable Patient Instructions: Anxiety Reaction Additional Instructions: See primary doctor for further evaluation. Avoid use of the emergency room for refill of controlled medication SHELIA PATRICIA MD Feb 09, 2017 13:45
[2017-02-09] MEDS ORDERED: DIAZEPAM 5 MG TAB PO ONE (14:00)
== END 2017-02-09 14:07 | disposition home or self-care (01) ==
LOC: FTE 12:24
DX: Z72.89 Other problems related to lifestyle (principal); F17.210 Nicotine dependence, cigarettes, uncomplicated
CPT/HCPCS: Z7502; Z7610; 99283

== ENCOUNTER 2017-03-31 14:53 | Emergency (ER) | payer OTHER ==
[~2017-03-31] VITALS: Ht 170.2 cm; Wt 71.4 kg
[2017-03-31 15:01] VITALS: Ht 170.2 cm; Wt 71.4 kg
[2017-03-31] MEDS ORDERED: ONDANSETRON (ODT) 4 MG TAB ODT STA (15:54)
[2017-03-31] MEDS ORDERED: HYDROCODONE/APAP (10/325) TAB PO ONE (16:00)
--- NOTE | 2017-03-31 16:03 | ERD ---
ER Documentation Chief Complaint Date/Time DATE: 03/31/17 TIME: 15:59 Chief Complaint pt bib self with c/o left eye pain, pt blind since age 6 HPI 41-year-old male who presents to the emergency room complaining of left eye pain. The patient has been blind since the age of 6. He has multiple visits to the emergency room complaining of eye pain and chronic pain issues requesting narcotics. Today he is doing the same. He states that he has had eye pain to the left eye and there are insurance issues that he cannot follow- up with his primary care physician or plant controls specialist to have the surgery needed to control the pain. He describes the pain is 8 out of 10 and throbbing. He states that he has refused to take his [place] at home because it makes him vomit. ROS All systems reviewed and are negative except as per history of present illness. Medications Home Meds Active Scripts Hydrocodone/Acetaminophen ([place] 10-325 Tablet) 1 Each Tablet, 1 TAB PO Q6H Y for PAIN, #7 TAB Prov:YANELIS SNIDER PA-C 01/29/17 Permethrin* (Elimite*) 5% Cr, 1 APPLIC TOP ONCE for 7 Days, TUB Prov:CRIS JAMIL PA-C 10/25/16 Ondansetron (Ondansetron Odt) 4 Mg Tab.rapdis, 4 MG PO Q8 Y for NAUSEA AND/OR VOMITING, #30 TAB Prov:BERRY SHELDON NP 04/11/16 Oxycodone HCl/Acetaminophen (Percocet 10-325 mg Tablet) 1 Each Tablet, 1 EACH PO Q6, #10 TAB Prov:BERRY SHELDON NP 04/11/16 Oxycodone HCl/Acetaminophen (Percocet 10-325 mg Tablet) 1 Each Tablet, 1 EACH PO TID, #14 TAB Prov:SHELIA PATRICIA MD 03/11/16 Oxycodone Hcl-Acetaminophen* (Percocet*) 10-325 Mg Tablet, 1 TAB PO Q4H Y for sev, #3 TAB Prov:BERRY SHELDON NP 11/18/15 Hydrocodone Bit-Acetaminophen* ([place]*) 5-325 Mg Tab, 1 TAB PO Q6 Y for PAIN, # 7 TAB Prov:REBECCA,TJ C 09/25/15 Moxifloxacin Hcl* (Vigamox*) 0.5% - 3 Ml Opht, 1 DROP RIGHT EYE TID for 7 Days, EA Prov:TJ FERNANDEZ 09/25/15 Permethrin (Permethrin) 118 Ml Liquid, 118 ML TP BID for 7 Days, EA Prov:LETTY PIZANO. 08/10/15 Hydrocodone Bit-Acetaminophen* ([place]*) 10-325 Mg Tablet, 1 TAB PO Q6 Y for PAIN , #20 TAB Prov:LETTY PIZANO S. 08/10/15 Reported Medications Hydrocodone Bit-Acetaminophen (Hydrocodone-APAP) 10-325MG Tablet, 1 TAB PO Q4 Y for PAIN, #20 08/10/15 Allergies Allergies: Coded Allergies: ketorolac tromethamine (Verified Allergy, Intermediate, hives, 02/23/15) prochlorperazine maleate (Verified Allergy, Intermediate, hives, 02/23/15) morphine (Verified Allergy, Unknown, 03/19/14) PMhx/Soc History of Surgery: Yes (B Corneal Surg) Anesthesia Reaction: No Hx Neurological Disorder: Yes (Migraine HAs,Chronic Pains) Hx Respiratory Disorders: No Hx Cardiac Disorders: No Hx Psychiatric Problems: No Hx Miscellaneous Medical Probl: Yes (B Conjunctivitis,Fall,Legally Blind, glaucoma, back pain.) Hx Alcohol Use: No Hx Substance Use: No Hx Tobacco Use: Yes (10 sticks/day) FmHx Family History: No diabetes Physical Exam Vitals Vital Signs Date Time Temp Pulse Resp B/P Pulse Ox O2 Delivery O2 Flow Rate FiO2 03/31/17 15:01 98.3 84 18 162/90 97 Physical Exam General: Well developed, well nourished, no acute distress Head: Normocephalic, atraumatic. Eyes: Blindness in bilateral eyes with what appear to be corneal resections ENT: Moist mucous membranes Neck: Full ROM Respiratory: No respiratory distress Cardiovascular: Good capillary refil Abdominal: Nondistended : Deferred MSK: No edema, no unilateral swelling, 5/5 strength Neurologic: Alert and oriented, moving all extremities, normal speech, steady gait Skin: No rash Psych: Normal mood Results 24 hrs Current Medications Medications (Trade) Dose Ordered Sig/Cheko Route PRN Reason Start Time Stop Time Status Last Admin Dose Admin Acetaminophen/ Hydrocodone Bitart ([place] (10/325)) 1 tab ONCE ONCE PO 03/31/17 16:00 03/31/17 16:01 Ondansetron HCl (Zofran Odt) 4 mg ONCE STAT ODT 03/31/17 15:54 03/31/17 15:55 DC Procedures/MDM A combination of electronic medical record review, CURES database review and patient behavior in the emergency room are concerning for drug-seeking and/or narcotic dependence behavior. In my opinion further use of IV or IM narcotics in this patient is not warranted unless clinical scenario changes. In addition , we should use caution prescribing chronic narcotic and/or benzodiazepine medications from the emergency room. A single provider should be dispensing this type of medication. The patient was informed. The patient's cures report shows 27 visits in a 12 month period for similar pain related issues. Additionally the patient has at least 5 different aliases. The 27 visits are just based on this Alias today. I do not believe the patient is having an acute condition such as orbital cellulitis I do not believe that laboratory testing or diagnostic imaging is necessary. This is consistent with his chronic pain. The patient was offered a single [place] based on her chronic pain protocols. He accepted a dose of [place]. No prescription provided. Resources to pain management were provided. The patient was strongly advised to follow-up with primary care physician in a single provider for narcotics. The patient will be referred to our chronic pain management committee for development of a care plan. We discussed follow up with the patient's primary care doctor within 24 to 48 hours as needed. We also discussed return to the emergency room for worsening symptoms or worsening condition. Outpatient referral: None required Discharge Medications: None Departure Diagnosis: Primary Impression: Chronic pain Chronic pain type: chronic pain syndrome Qualified Code: G89.4 - Chronic pain syndrome Additional Impression: Drug-seeking behavior Condition: Stable Patient Instructions: Chronic Pain Referrals: MELODIE VALVERDE MD, MARK P. MD Additional Instructions: Call your primary care doctor TOMORROW for an appointment during the next 1 WEEK.Tell the area secretary that you were referred from this facility.See the doctor sooner or return here if your condition worsens before your appointment time. JAMES BUI MD Mar 31, 2017 16:03
[2017-03-31 16:19] VITALS: BP 170/95; PULSE 98; RESP 18; TEMP 98.3
== END 2017-03-31 16:21 | disposition home or self-care (01) ==
LOC: FTE 14:53
DX: G89.4 Chronic pain syndrome (principal); F17.210 Nicotine dependence, cigarettes, uncomplicated; Z76.5 Malingerer [conscious simulation]
CPT/HCPCS: Z7502; Z7610; 99283

== ENCOUNTER 2017-04-05 03:52 | Emergency (ER) | payer OTHER ==
[~2017-04-05] VITALS: Ht 170.2 cm; Wt 63.5 kg
[2017-04-05 03:57] VITALS: Ht 170.2 cm; Wt 63.5 kg
[2017-04-05] MEDS ORDERED: ONDANSETRON (ODT) 4 MG TAB ODT STA (04:16)
[2017-04-05] MEDS ORDERED: HYDROmorphONE 1 MG/ML SYG IM STA (04:16)
[2017-04-05] MEDS ORDERED: NICARDipine HCL 30 MG CAPSULE PO ONE (04:30)
[2017-04-05] MEDS ORDERED: HYDR-902 PO (05:15)
[2017-04-05] MEDS ORDERED: AMLO-218 PO (05:17)
--- NOTE | 2017-04-05 05:20 | ERD ---
ER Documentation Chief Complaint Date/Time DATE: 04/05/17 TIME: 05:18 Chief Complaint HEAD, EYES, AND NECK PAIN; MARYJANE CORNEA REMOVED; HTN SEC TO PAIN PER PT. 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 Says he has chronic pain in his eyes for years and he states he is having a flareup tonight patient says he has some sharp pain in his left eye that radiates to his left neck and this is typical pattern he has when he has flareups. He says this is nothing new he has had it for years just out of pain medication. He says when he gets in pain his blood pressure goes up but is not having any dizziness focal neurological complaints chest pain shortness of breath. The symptoms onset were a few hours ago. ROS All systems reviewed and are negative except as per history of present illness. Medications Home Meds Active Scripts Amlodipine Besylate* (Norvasc*) 10 Mg Tablet, 10 MG PO DAILY, #30 TAB Prov:KEI POLLARD DO 04/05/17 Hydrocodone/Acetaminophen (Colton 10-325 Tablet) 1 Each Tablet, 1 TAB PO Q6H Y for PAIN, #20 TAB Prov:GREGG POLLARDSTDILCIA Bermeo DO 04/05/17 Hydrocodone/Acetaminophen (Colton 10-325 Tablet) 1 Each Tablet, 1 TAB PO Q6H Y for PAIN, #7 TAB Prov:YANELIS SNIDER PA-C 01/29/17 Permethrin* (Elimite*) 5% Cr, 1 APPLIC TOP ONCE for 7 Days, TUB Prov:CRIS JAMIL PA-C 10/25/16 Ondansetron (Ondansetron Odt) 4 Mg Tab.rapdis, 4 MG PO Q8 Y for NAUSEA AND/OR VOMITING, #30 TAB Prov:BERRY SHELDON NP 04/11/16 Oxycodone HCl/Acetaminophen (Percocet 10-325 mg Tablet) 1 Each Tablet, 1 EACH PO Q6, #10 TAB Prov:BERRY SHELDON NP 04/11/16 Oxycodone HCl/Acetaminophen (Percocet 10-325 mg Tablet) 1 Each Tablet, 1 EACH PO TID, #14 TAB Prov:SHELIA PATRICIA MD 03/11/16 Oxycodone Hcl-Acetaminophen* (Percocet*) 10-325 Mg Tablet, 1 TAB PO Q4H Y for sev, #3 TAB Prov:BERRY SHELDON NP 11/18/15 Hydrocodone Bit-Acetaminophen* (Colton*) 5-325 Mg Tab, 1 TAB PO Q6 Y for PAIN, # 7 TAB Prov:REBECCAREJITJ C 09/25/15 Moxifloxacin Hcl* (Vigamox*) 0.5% - 3 Ml Opht, 1 DROP RIGHT EYE TID for 7 Days, EA Prov:REBECCAREJITJ C 09/25/15 Permethrin (Permethrin) 118 Ml Liquid, 118 ML TP BID for 7 Days, EA Prov:LETTY PIZANO 08/10/15 Hydrocodone Bit-Acetaminophen* (Colton*) 10-325 Mg Tablet, 1 TAB PO Q6 Y for PAIN , #20 TAB Prov:LETTY PIZANO SAustin 08/10/15 Reported Medications Hydrocodone Bit-Acetaminophen (Hydrocodone-APAP) 10-325MG Tablet, 1 TAB PO Q4 Y for PAIN, #20 08/10/15 Allergies Allergies: Coded Allergies: ketorolac tromethamine (Verified Allergy, Intermediate, hives, 02/23/15) prochlorperazine maleate (Verified Allergy, Intermediate, hives, 02/23/15) morphine (Verified Allergy, Unknown, 03/19/14) PMhx/Soc History of Surgery: Yes (CORNEAL REMOVAL) Anesthesia Reaction: No Hx Neurological Disorder: Yes (Migraine HAs,Chronic Pains) Hx Respiratory Disorders: No Hx Cardiac Disorders: Yes (HTN) Hx Psychiatric Problems: Yes (DEPRESSION ) Hx Miscellaneous Medical Probl: Yes (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, GLAUCOMA, OPTIC NERVE DAMAGE) Hx Alcohol Use: No Hx Substance Use: No Hx Tobacco Use: Yes Smoking Status: Current every day smoker FmHx Family History: No coronary disease Physical Exam Vitals Vital Signs Date Time Temp Pulse Resp B/P Pulse Ox O2 Delivery O2 Flow Rate FiO2 04/05/17 04:28 89 18 147/104 99 Room Air 04/05/17 03:57 97.8 99 22 172/111 99 Physical Exam Const: Well-developed, well-nourished Head: Atraumatic, normocephalic Eyes: [Left cornea is completely removed there is no pupil or iris, the right eye has a hazy cornea with very irregular iris ENT: Normal External Ears, Nose and Mouth, moist mucus membranes. Neck: Full range of motion. No meningismus, no lymphadenopathy. Resp: Clear to auscultation bilaterally, no wheezing, rhonchi, rales Cardio: Regular rate and rhythm, no murmurs, S1 S2 present Abd: Soft, non tender x 4, non distended. Normal bowel sounds, no guarding or rebound, no pulsitile abdominal masses or bruits Skin: No petechiae or rashes, no ecchymosis , no maculopapular rash Back: No midline or flank tenderness Ext: No cyanosis, or edema, FROM x 4, normal inspection, neurovascularly intact x 4 Neur: Awake and alert, STR 5/5 x 4, sensation intact x 4, no focal findings, cerebellum intact Psych: Normal Mood and Affect Results 24 hrs Current Medications Medications (Trade) Dose Ordered Sig/Cheko Route PRN Reason Start Time Stop Time Status Last Admin Dose Admin Nicardipine HCl (Cardene) 30 mg ONCE ONCE PO 04/05/17 04:30 04/05/17 04:31 DC 04/05/17 04:36 Hydromorphone HCl (Dilaudid) 1 mg ONCE STAT IM 04/05/17 04:16 04/05/17 04:18 DC 04/05/17 05:14 Ondansetron HCl (Zofran Odt) 4 mg ONCE STAT ODT 04/05/17 04:16 04/05/17 04:18 DC Promethazine HCl (Phenergan) 25 mg ONCE ONCE PO 04/05/17 05:30 04/05/17 05:31 04/05/17 05:13 Procedures/MDM Patient is asking for Dilaudid and Phenergan. We will discharge the pain meds and [facility] He was given Cardene for blood pressure control Departure Diagnosis: Primary Impression: Chronic pain Chronic pain type: other chronic pain Qualified Code: G89.29 - Other chronic pain Additional Impression: Uncontrolled hypertension Condition: Stable Patient Instructions: Chronic Pain KEI POLLARD DO Apr 05, 2017 05:20
[2017-04-05] MEDS ORDERED: PROMETHAZINE 25 MG TAB PO ONE (05:30)
[2017-04-05 05:40] VITALS: BP 135/104; PULSE 77; RESP 18
== END 2017-04-05 05:52 | disposition home or self-care (01) ==
LOC: E/R 03:52
DX: G89.29 Other chronic pain (principal); I10 Essential (primary) hypertension; F17.210 Nicotine dependence, cigarettes, uncomplicated
CPT/HCPCS: 96372; J1170; Z7502; Z7610

== ENCOUNTER 2017-06-28 17:19 | Emergency (ER) | payer OTHER ==
[~2017-06-28] VITALS: Ht 170.2 cm; Wt 66.4 kg
[~2017-06-28 17:19] MED LIST changes: +AMLO-218 PO
[2017-06-28 17:25] VITALS: Ht 170.2 cm; Wt 66.4 kg
[2017-06-28] MEDS ORDERED: HYDROCODONE/APAP (5/325) TAB PO ONE (18:30)
--- NOTE | 2017-06-29 00:24 | ERD ---
ER Documentation Chief Complaint Chief Complaint back pain x 2 days, eye pain this morning HPI This is a 42-year-old male who presents the emergency department today complaining of left eye pain that radiates to the back of his neck and causes him to have a headache and high blood pressure. States he also has some left- sided back pain. States that he was recently diagnosed with cyst on his kidneys and he is concerned about that. Denies any dysuria, loss of bowel or bladder control, fevers or chills. States he takes Downing but it "does not help him". ROS All systems reviewed and are negative except as per history of present illness. Medications Home Meds Active Scripts Amlodipine Besylate* (Norvasc*) 10 Mg Tablet, 10 MG PO DAILY, #30 TAB Prov:KEI POLLARD A. DO 04/05/17 Hydrocodone/Acetaminophen (Downing 10-325 Tablet) 1 Each Tablet, 1 TAB PO Q6H Y for PAIN, #20 TAB Prov:GREGG POLLARDSTDILCIA Bermeo DO 04/05/17 Hydrocodone/Acetaminophen (Downing 10-325 Tablet) 1 Each Tablet, 1 TAB PO Q6H Y for PAIN, #7 TAB Prov:YANELIS SNIDER PA-C 01/29/17 Permethrin* (Elimite*) 5% Cr, 1 APPLIC TOP ONCE for 7 Days, TUB Prov:CRIS JAMIL PA-C 10/25/16 Ondansetron (Ondansetron Odt) 4 Mg Tab.rapdis, 4 MG PO Q8 Y for NAUSEA AND/OR VOMITING, #30 TAB Prov:BERRY SHELDON NP 04/11/16 Oxycodone HCl/Acetaminophen (Percocet 10-325 mg Tablet) 1 Each Tablet, 1 EACH PO Q6, #10 TAB Prov:BERRY SHELDON NP 04/11/16 Oxycodone HCl/Acetaminophen (Percocet 10-325 mg Tablet) 1 Each Tablet, 1 EACH PO TID, #14 TAB Prov:SHELIA PATRICIA MD 03/11/16 Oxycodone Hcl-Acetaminophen* (Percocet*) 10-325 Mg Tablet, 1 TAB PO Q4H Y for sev, #3 TAB Prov:BERRY SHELDON NP 11/18/15 Hydrocodone Bit-Acetaminophen* (Downing*) 5-325 Mg Tab, 1 TAB PO Q6 Y for PAIN, # 7 TAB Prov:TJ FERNANDEZ 09/25/15 Moxifloxacin Hcl* (Vigamox*) 0.5% - 3 Ml Opht, 1 DROP RIGHT EYE TID for 7 Days, EA Prov:TJ FERNANDEZ C 09/25/15 Permethrin (Permethrin) 118 Ml Liquid, 118 ML TP BID for 7 Days, EA Prov:MAKENNAAIDANLETTY S. 08/10/15 Hydrocodone Bit-Acetaminophen* (Downing*) 10-325 Mg Tablet, 1 TAB PO Q6 Y for PAIN , #20 TAB Prov:HARINDERLETTY S. 08/10/15 Reported Medications Hydrocodone Bit-Acetaminophen (Hydrocodone-APAP) 10-325MG Tablet, 1 TAB PO Q4 Y for PAIN, #20 08/10/15 Allergies Allergies: Coded Allergies: ketorolac tromethamine (Verified Allergy, Intermediate, hives, 02/23/15) prochlorperazine maleate (Verified Allergy, Intermediate, hives, 02/23/15) morphine (Verified Allergy, Unknown, 03/19/14) PMhx/Soc History of Surgery: Yes (CORNEAL REMOVAL) Anesthesia Reaction: No Hx Neurological Disorder: Yes (Migraine HAs,Chronic Pains) Hx Respiratory Disorders: No Hx Cardiac Disorders: Yes (HTN) Hx Psychiatric Problems: Yes (DEPRESSION ) Hx Miscellaneous Medical Probl: Yes (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 ENT: Normal External Ears, Nose and Mouth. Neck: Full range of motion..~ No meningismus. Resp: Clear to auscultation bilaterally Cardio: Regular rate and rhythm, no murmurs Abd: Soft, non tender, non distended. Normal bowel sounds Skin: No petechiae or rashes Back: No midline tenderness. Left-sided paraspinal tenderness. Full active range of motion. Negative straight leg raise. Pulses 2+. Distal neurovascularly intact. Ext: No cyanosis, or edema Neur: Awake and alert Psych: Normal Mood and Affect Results 24 hrs Current Medications Medications (Trade) Dose Ordered Sig/Cheko Route PRN Reason Start Time Stop Time Status Last Admin Dose Admin Acetaminophen/ Hydrocodone Bitart (Downing (5/325)) 1 tab ONCE ONCE PO 06/28/17 18:30 06/28/17 18:31 DC 06/28/17 18:35 Procedures/MDM This 42-year-old male who presents emergency department today complaining of left eye pain that radiates to the left side of his neck and causes him to have a headache. Upon review of patient's medical records patient has been seen multiple times for chronic pain and drug-seeking behaviors. Upon review of the ED report patient has had 32 visits this year to various local ERs for chronic pain complaints. Patient reported the same exact symptom here in the emergency department the last 2 visits. I do not believe that the patient requires further workup or imaging as this patient appears to have chronic pain. He was also noted that patient has recently been using another alias. Patient is afebrile and otherwise well-appearing. He has had blindness since a young age. He appears to have corneal resections and does not have any new complaints and indicated that this is the same pain that he usually has. I have low suspicion for acute fracture dislocation, sepsis or severe acute bacterial infection. I discussed the patient with Dr. Del Rio and he feels that it is appropriate to give the patient one Downing here in the emergency department. Patient does have a care plan and it has been recommended that the patient not be discharged home in any narcotics. I have explained this to the patient. Patient does have a primary care doctor and he may follow-up with him. 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 Patient was also concerned about cysts on his kidneys have explained to him that he may follow- up with his primary care doctor for referral to nephrology specialist. I also gave him a list of referrals for that as well. At this time the patient is stable for discharge and outpatient management. Patient should follow up with their PCP in the next 1-2 days. They may return to the emergency department sooner for any persistent or worsening of symptoms. Patient understood and agreed with the plan. Departure Diagnosis: Primary Impression: Back pain Back pain location: low back pain Chronicity: chronic Back pain laterality : left Sciatica presence: without sciatica Qualified Code: M54.5 - Chronic left-sided low back pain without sciatica Additional Impression: Eye pain Laterality: left Qualified Code: H57.12 - Pain of left eye Condition: Fair Patient Instructions: Pain Management Referrals: MELODIE VALVERDE MD,JOHNIE Ayala, MD AMAAY,LIE PIERCE,KAIT WHITEHEAD,KENYA ARREDONDO,LOLIS BLAKE,MAURICE VICKERS,PARI LEY,ARIANA TRAYLOR,KAYLAN CASTILLO,CED MAYO,JAMES YOUNGBLOOD,UMER YOUNGBLOOD,GAETANO COTNRERAS,CHELSEA KEITA,RUTH MENESES Additional Instructions: Call your primary care doctor TOMORROW for an appointment during the next 1-2 days.See the doctor sooner or return here if your condition worsens before your appointment time. 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
== END 2017-06-28 18:45 | disposition home or self-care (01) ==
LOC: FTE 17:19
DX: M54.5 Low back pain (principal); I10 Essential (primary) hypertension; F17.210 Nicotine dependence, cigarettes, uncomplicated
CPT/HCPCS: Z7502; Z7610; 99283

== ENCOUNTER 2017-09-06 19:57 | Emergency (ER) | END 2017-09-07 01:31 | disposition home or self-care (01) ==

== ENCOUNTER 2017-12-18 08:05 | Emergency (ER) | END 2017-12-20 13:34 | disposition home or self-care (01) ==

== ENCOUNTER 2017-12-24 00:37 | Emergency (ER) | END 2017-12-24 02:15 | disposition home or self-care (01) ==

== ENCOUNTER 2019-03-14 03:10 | Emergency (ER) | payer OTHER ==
[~2019-03-14] VITALS: Ht 170.2 cm; Wt 74.5 kg
[~2019-03-14 03:10] MED LIST changes: -ELIM TOP; -HYDR-3498 PO; -HYDR-762 PO; -HYDR-902 PO; -ONDA4TAB14 PO; -OXYC-209 PO; -OXYC-284 PO; -PERM120L5 TP; +TRAM50TA2 PO; -VIGA RIGHT EYE
[2019-03-14 03:13] VITALS: Ht 170.2 cm; Wt 74.5 kg
[2019-03-14 03:20] VITALS: BP 195/123; PULSE 89; RESP 16
[2019-03-14] MEDS ORDERED: oxyCODONE 5 MG TAB PO ONE (03:30)
[2019-03-14] MEDS ORDERED: oxyCODONE (CR) 15 MG TAB [oxyCONTIN] PO ONE (03:30)
== END 2019-03-14 03:45 | disposition left against medical advice (07) ==
LOC: E/R 03:10
DX: R51 Headache (principal); I10 Essential (primary) hypertension; F17.210 Nicotine dependence, cigarettes, uncomplicated; M79.601 Pain in right arm; M79.602 Pain in left arm
CPT/HCPCS: Z7502; Z7610; 99282